=== PATIENT | male | born 1955 | race Caucasian/White ===

== ENCOUNTER 2022-12-04 06:56 | Day surgery (SDC) | payer MEDICARE, OTHER ==
[2022-12-04] MEDS ORDERED: Propofol 200 MG/20 ML SDV IV ONE (06:57)
[2022-12-04] MEDS ORDERED: Lidocaine 2% 5 ML SDV IV ONE (06:57)
[2022-12-04] MEDS ORDERED: Sodium Chloride 0.9% 10 ML Syringe FLUSH PRN (07:00)
[2022-12-04] MEDS ORDERED: Lactated Ringers 1,000 ML IV SCH (07:00)
[2022-12-04] MEDS ORDERED: Simethicone Drops 40 MG/0.6 ML 30 ML Bottle PO ONE (08:29)
[2022-12-04 10:02] VITALS: BP 145/85; PULSE 56
== END 2022-12-04 10:17 | disposition home or self-care (01) ==
LOC: FB.SDS 06:56
PROVIDERS: ATTEND Surgery
DX: Z12.11 Encounter for screening for malignant neoplasm of colon (principal); D12.6 Benign neoplasm of colon, unspecified; K57.30 Diverticulosis of large intestine without perforation or abscess without bleeding; Z79.899 Other long term (current) drug therapy; Z88.0 Allergy status to penicillin; Z88.8 Allergy status to other drugs, medicaments and biological substances; Z98.890 Other specified postprocedural states
CPT/HCPCS: 00812; 45385; 88305; A9270; J2704; J7120